=== PATIENT | male | born 1990 ===

== ENCOUNTER 2023-08-26 08:49 | Emergency (ER) | payer OTHER, SELFPAY ==
[2023-08-26 08:54] VITALS: BP 129/81; PULSE 72; RESP 16; TEMP 36; O2SAT 98; BMI 3515.3
--- NOTE | 2023-08-26 09:35 | ED.GENADULT ---
HPI - General Adult General Chief complaint: Ear/Nose/Throat Problem Stated complaint: pressure in right ear,ringing Time Seen by Provider: 08/26/23 09:16 Source: patient Mode of arrival: ambulatory Limitations: no limitations History of Present Illness HPI narrative: 33-year-old male coming in today complaining of ear pain. Patient states that he was diagnosed with an otitis media 2 days ago and he is on day 2 amoxicillin. His discomfort continues and he now has ringing in the right ear. He denies fevers or chills. He has a mild cough. He does have congestion. He also has bilateral conjunctival injection. No eye pain or significant drainage. No changes in his vision. He does feel achy. Normal appetite. No diarrhea. No skin rashes. Related Data Home Medications Medication Instructions Recorded Confirmed amoxicillin 500 mg capsule 1,000 mg PO BID 08/26/23 08/26/23 Previous Rx's Medication Instructions Recorded amoxicillin 875 mg-potassium 1 tab PO BID 7 days #14 tabs 08/26/23 clavulanate 125 mg tablet prednisone 20 mg tablet 40 mg (2 x 20 mg) PO DAILY 5 days 08/26/23 #10 tabs Allergies Allergy/AdvReac Type Severity Reaction Status Date / Time No Known Allergies Allergy Unknown Unknown Verified 08/26/23 09:02 Review of Systems Status of ROS: Reports: 10 or more systems reviewed and unremarkable except as noted in History and below PFSH PFSH Surgical History Status post reconstruction of anterior cruciate ligament ?Z98.890 - Other specified postprocedural states (ICD-10) History of knee surgery ?Z98.890 - Other specified postprocedural states (ICD-10) History of inguinal hernia repair ?Z98.890 - Other specified postprocedural states (ICD-10) ?Z87.19 - Personal history of other diseases of the digestive system (ICD-10) Family History Other Diabetes High blood pressure Social History Smoking Status: Never smoker Little interest or pleasure in doing things: several days Feeling down, depressed, or hopeless: several days Exam Narrative: Exam Narrative: Well-nourished well-developed patient in no acute distress. Alert and oriented. Answers questions appropriately. Mood and affect are appropriate. Thoughts are goal oriented and rational. No tangential or magical thinking noted. Patient speaks in full sentences without needing to catch his breath. He is congested. HEENT: Normocephalic atraumatic. Pupils are equally round reactive to light. Extraocular muscles are intact. Conjunctivae are moist without any icterus noted. Moist mucous membranes. Posterior pharynx is normal. Neck is soft without any lymphadenopathy or thyromegaly. No masses are appreciated. Left TM is normal. Right TM is dull, there is some pus behind the eardrum. The ear canal is normal. Cardiovascular: Heart is regular rate and rhythm S1 and S2 are present without any murmurs. Lungs: Clear to auscultation bilaterally no wheezes rhonchi or rales are appreciated. Patient takes deep breaths without any discomfort. Skin: Well perfused without any obvious rashes. Const: Vital Signs, click to edit/add: Vital Signs - 24 hr 08/26/23 08:54 Temperature 96.8 F L Pulse Rate [Pulse Oximeter] 72 Respiratory Rate 16 Blood Pressure [Le ft Upper Arm] 129/81 Pulse Oximetry 98 Oxygen Delivery Me thod Room Air Course Course ED Course: Triple swab was obtained: Negative. Strep DNA was obtained: Negative. Vital Signs Vital signs: Initial Vital Signs Temperature 96.8 F L 08/26/23 08:54 Temperature Source Temporal Artery Scan 08/26/23 08:54 Pulse Rate 72 08/26/23 08:54 Respiratory Rate 16 08/26/23 08:54 Blood Pressure 129/81 08/26/23 08:54 Blood Pressure Mean 97 08/26/23 08:54 Blood Pressure Position Sitting 08/26/23 08:54 Pulse Oximetry 98 08/26/23 08:54 Oxygen Delivery Method Room Air 08/26/23 08:54 Vital Signs Temperature 96.8 F L 08/26/23 08:54 Pulse Rate 72 08/26/23 08:54 Respiratory Rate 16 08/26/23 08:54 Blood Pressure 129/81 08/26/23 08:54 Pulse Oximetry 98 08/26/23 08:54 Oxygen Delivery Method Room Air 08/26/23 08:54 Temperature 96.8 F L 04/01/24 08:54 Pulse Rate 72 08/26/23 08:54 Respiratory Rate 16 08/26/23 08:54 Blood Pressure 129/81 08/26/23 08:54 Pulse Oximetry 98 08/26/23 08:54 Oxygen Delivery Method Room Air 08/26/23 08:54 Medical Decision Making MDM Narrative Medical decision making narrative: 33-year-old male with otitis media and tinnitus. Will switch his amoxicillin to Augmentin, and prednisone. Lab Data Lab results reviewed: Yes I reviewed the patient's lab results Labs: Lab Results 08/26/23 Range/Units Unknown SARS-CoV-2 (PCR) Negative SARS-CoV-2 (Negative) Influenza Type A (PCR) Negative PCR FLU A (Negative) Influenza Type B (PCR) Negative PCR FLU B (Negative) Group A Strep DNA NOT DETECTED (Not Detectd) Discharge Plan Discharge Clinical Impression: Otitis media, Tinnitus Patient Disposition: Home, Self-Care Condition: Stable Additional Instructions: Stop amoxicillin, start Augmentin. Also start steroid as prescribed-this should hopefully help with the ringing in the ear. Follow-up with your primary care provider in 1 week for a ear recheck. We will call you today if the results of the testing you had done in the ER are positive. Prescriptions: New amoxicillin-pot clavulanate 875-125 mg tablet 1 tab PO BID 7 Days Qty: 14 0RF prednisone 20 mg tablet 40 mg PO DAILY 5 Days Qty: 10 0RF No Action amoxicillin 500 mg capsule 1,000 mg PO BID Follow Up/Referrals: Zeeshan Patel MD [Primary Care Provider] - Stand Alone Forms: [employer] Info Instructions
[2023-08-26 10:02] LABS: Strep A DNA Probe* NOT DETECTED (Not Detectd)
[2023-08-26 10:13] LABS: PCR FLU A Negative PCR FLU A (Negative); PCR FLU B Negative PCR FLU B (Negative); SARS PCR* Negative SARS-CoV-2 (Negative)
== END 2023-08-26 10:42 | disposition home or self-care (01) ==
PROVIDERS: Emergency Provider Family Medicine; PCP Family Medicine
DX: H93.11 Tinnitus, right ear (principal); H66.91 Otitis media, unspecified, right ear
CPT/HCPCS: 87631; 87651; 99283; 99284